=== PATIENT | male | born 1980 | race Caucasian/White ===

== ENCOUNTER 2016-07-21 08:25 | Emergency (ER) | payer OTHER ==
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
== END 2016-07-21 14:15 | disposition home or self-care (01) ==
LOC: ER 08:25 → 5MS 13:00 → ER 13:00
DX: S33.5XXA Sprain of ligaments of lumbar spine, initial encounter (principal); S40.011A Contusion of right shoulder, initial encounter; Z88.0 Allergy status to penicillin; Z88.1 Allergy status to other antibiotic agents; V43.52XA Car driver injured in collision with other type car in traffic accident, initial encounter

== ENCOUNTER → 2016-08-25 | Outpatient (CLI) | payer SELFPAY | END | disposition home or self-care (01) | LOC: RAD.S 08-05 12:08 | DX: R20.2 Paresthesia of skin (principal); M50.823 Other cervical disc disorders at C6-C7 level; M50.223 Other cervical disc displacement at C6-C7 level; M47.892 Other spondylosis, cervical region; M48.02 Spinal stenosis, cervical region; R20.0 Anesthesia of skin; V89.2XXA Person injured in unspecified motor-vehicle accident, traffic, initial encounter ==